=== PATIENT | male | born 1965 | race Caucasian/White ===

== ENCOUNTER 2016-07-10 11:13 | Emergency (ER) | payer MEDICAID ==
[2016-07-10 12:17] LABS: BASOPHILS 0.8 % (0.0-2.0); HEMATOCRIT 42.9 % (42.0-54.0); HEMOGLOBIN 14.9 g/dL (13.5-17.5); IMMATURE GRANULOCYTES 0.3 % (0-5); LYMPHOCYTES 41.1 % (15-50); MCH 31.5 pg (26.0-34.0); MCHC 34.7 g/dL (31.0-37.0); MCV 90.7 fL (80.0-100.0); MEAN PLATELET VOLUME 10.4 fL (7.4-10.4); MONOCYTES 10.2 % (2-11); NEUTROPHILS 40.6 % (40-80); PLATELET COUNT 290 10x3/uL (130-400); RBC 4.73 10x6/uL (4.20-6.10); RDW 12.7 % (11.5-14.5); WBC 7.6 10x3/uL (4.8-10.8)
[2016-07-10 12:27] LABS: ALKALINE PHOSPHATASE 63 U/L (46-116); ALT (SGPT) 23 U/L (10-68); BILIRUBIN - TOTAL 0.29 mg/dL (0.2-1.3); CALC OSMOLALITY 277 mosm/kg (275-300); CALCIUM 9.2 mg/dL (8.5-10.1); CARBON DIOXIDE 28.6 mmol/L (21.0-32.0); CHLORIDE - SERUM 104 mmol/L (98-107); CREATININE - SERUM 0.8 mg/dL (0.6-1.3); GLUCOSE 91 mg/dL (74-106); POTASSIUM - SERUM 3.9 mmol/L (3.5-5.1); PROTEIN - SERUM 7.2 g/dL (6.4-8.2); SODIUM 140 mmol/L (136-145); UREA NITROGEN 9 mg/dL (7-18); eGFR NON AFRICAN AMERICAN > 90 mL/min (90-120)
[2016-07-10 12:39] LABS: CKMB 2.5 U/L (0.0-3.6); CREATINE KINASE 112 UL (21-232)
[2016-07-10 12:42] LABS: TROPONIN-I < 0.017 ng/mL (0.000-0.060)
== END 2016-07-10 17:42 | disposition home or self-care (01) ==
LOC: D.ER 11:13
PROVIDERS: Emergency Medicine
DX: R07.9 Chest pain, unspecified (principal); J44.9 Chronic obstructive pulmonary disease, unspecified; C44.90 Unspecified malignant neoplasm of skin, unspecified; I49.3 Ventricular premature depolarization

== ENCOUNTER 2016-09-01 10:48 | Outpatient (CLI) | payer MEDICAID ==
[~2016-09-01] VITALS: Ht 185.4 cm; Wt 80.9 kg
--- NOTE | ~2016-09-01 | OP ---
PATIENT NAME: GREGORY HERBERT MEDICAL RECORD: [id number] :69 LOCATION:D.CAT ADMISSION DATE: SURGEON: CALEB SANTILLAN M.D. DATE OF OPERATION: 09/01/2016 PROCEDURES PERFORMED: 1. Selective coronary angiography. 2. Left heart catheterization with ventriculogram. 3. Aortofemoral runoff. INDICATION: A 51-year-old gentleman who presents with symptoms of accelerating angina. He has been having symptoms of lifestyle-limiting claudication as well. EQUIPMENT USED: A 5-Gabonese JL4, Michael right, pigtail catheter. TECHNIQUE: A 5-Gabonese sheath was inserted in retrograde fashion in the right common femoral artery. Next, selective coronary angiography was performed in standard views using 5-Gabonese JL4 and Michael right. Left heart catheterization was performed using pigtail catheter. Pigtail catheter was then pulled down to the level of T12. Power injection was performed to visualize the distal aorta. Next, the catheter was pulled down to the level of the aortic bifurcation. At this point, right and left lower extremity angiograms were performed. CORONARY ANATOMY: 1. Left main: Left main trunk is moderate in caliber. It gives rise to the LAD and circumflex. There is no obstruction. 2. LAD: This is a moderate caliber vessel extending to the apex. It has mild irregularities in the proximal segment, but nothing worse than 20%. 3. Circumflex: This vessel is moderate in caliber. The first lateral branch has a smooth 40% stenosis. 4. Right coronary: This vessel is moderate in caliber and dominant. The mid segment has a long 30% stenosis. 5. Left ventricle: Left ventricle is normal in size. There is mild LV dysfunction noted. Estimated ejection fraction is in the order of 45%. AORTOFEMORAL RUNOFF: The distal aorta is of good caliber. There is no evidence of any atheroma or aneurysm. Each kidney received a single arterial supply. There is no evidence of renal artery stenosis. Right common iliac artery is large in caliber and widely patent. Right common femoral artery is large in caliber and widely patent. Right superficial artery is moderate in caliber. There are mild irregularities throughout its course, but no significant obstruction seen. Right popliteal artery is moderate in caliber and widely patent. Below the knee, there appears to be at least 2-vessel runoff. Left common iliac artery is large in caliber and widely patent. Left common femoral artery is large in caliber and widely patent. Left superficial artery demonstrates mild irregularities, but nothing worse than 20%. Left popliteal artery is moderate in caliber and widely patent. Below the knee, again there appears to be at least 2-vessel runoff. IMPRESSION: 1. Mild coronary artery disease. OPERATIVE REPORT [id number] GREGORY HERBERT 2. Mild left ventricular dysfunction. 3. Mild peripheral vascular disease. PLAN: At this point, we will continue with medical management. TRANSINT:[id number] Voice Confirmation ID: [id number] DOCUMENT ID: [id number] CALEB SANTILLAN M.D. CC: [id number] DICTATION DATE: 09/01/16 1412 CRITICAL CARE PHYSICIAN ASSISTANT: 09/01/16 2016 [facility] CLI 09/01/16 [id number] [place] [address]
--- NOTE | ~2016-09-01 | HEMODYNAMI ---
PATIENT:GREGORY HERBERT MEDICAL RECORD: [id number] : 69 LOCATION:DJUDD ADMISSION DATE: 09/01/16 Generatedon:09/01/201614:10 Patient name: GREGORY HERBERT Patient #: [id number] SSN: : 1965 Date of study: 09/01/2016 Page: Of Hemodynamic Procedure Report Patient Data Patient Demographics Procedure consent was obtained First Name: GREGORY Gender: Male Last Name: PIEDAD : 1965 Patient #: [id number] Age: 51 year(s) Race: Unknown Additional ID: [id number] Contact details [address]: [address] [place] [address] DRIVE State: [place] City: [place] Zip code: [address] Past Medical History Allergies Allergen Reaction Date Comments Reported Shellfish 09/01/2016 Admission Admission Data Admission Date: 09/01/2016 Admission Time: 10:48 Admit Source: Other Procedure Procedure Types Cath Procedure Diagnostic Procedure LHC LHC w/Coronaries Miscellaneous Procedures Moderate Sedation up to 30 minutes Peripheral Cath Diagnostic Procedure Cath Peripheral Uvhvj-Dgvbgfc-Rey-Off Procedure Description Procedure Date Procedure Date: 09/01/2016 Procedure Start Time: 13:52 Procedure End Time: 14:09 Procedure Staff Name Function Bakari Carrillo MD Performing Physician Willy Byrd RT Scrub Reynaldo Parra RN Nurse Holly North RT Monitor Procedure Data Cath Procedure Fluoroscopy Diagnostic fluoroscopy Total fluoroscopy Time: 2.2 time: 2.2 min min Diagnostic fluoroscopy Total fluoroscopy dose: 391 dose: 391 mGy mGy Contrast Material Contrast Material Type Amount (ml) Isovue 300 126 Entry Location Entry Primary Successful Side Size Upsize Upsize Entry Closure Succes sful Closure Location (Fr) 1 (Fr) 2 (Fr) Remarks Device Remarks Femoral Right 5 Fr Exoseal artery Estimated blood loss: 10 ml Diagnostic catheters Device Type Used For End Catheter Placement Cordis 5Fr JL 4.0 Left Coronary Catheter (MP) Angiography Cordis 5Fr 3DRC Catheter Right Coronary (MP) Angiography Cordis 5Fr Pigtail LV Angiography Catheter (MP) Cordis 5Fr Pigtail Abdominal Catheter (MP) aortogram with runoff Procedure Complications No complications Procedure Medications Medication Administration Route Dosage Oxygen NC 2 l/min Heparin Flush Bag added to field 2 bags (1000units/500ml NS) 0.9% NaCl I.V. 100 ml/hr Fentanyl I.V. 50 mcg Versed I.V. 1 mg Fentanyl I.V. 50 mcg Versed I.V. 1 mg Fentanyl I.V. 50 mcg Hemodynamics Rest Heart Rate: 62 (bpm) Pressure Samples Time Site Value (mmHg) Purpose Heart Use Rate(bpm) 14:01 LV 136/-1,21 EDP 77 14:01 LV 139/-4,21 Snapshot 78 14:01 AO 113/61(88) Pullback 65 14:01 LV 125/-1,17 Pullback 65 Gradients Valve Time Site 1 Site 2 Mean SEP/DFP Peak To Heart Use (mmHg) (sec/min) Peak Rate (mmHg) (bpm) Aortic 14:01 LV AO 14 18 12 65 125/-1,17 113/61(88) Calculations Valve P-P Mean Valve Index Valve Source Name Gradient Area Flow (cm2) Aortic 12 14 12 14 Snapshots Pre Cath Intra NCS Post Cath Vital Signs Time Heart Resp SPO2 etCO2 CP6strh NIBP (mmHg) Rhythm Pain Sedation Rate (ipm) (%) (mmHg) (mmHg) Status Level (bpm) 13:40:42 58 17 98 0 0 133/82(103) NSR 0 (11) 10(A) , No pain 13:44:52 63 17 96 0 0 129/83(100) NSR 0 (11) 10(A) , No pain 13:49:42 64 16 96 0 0 135/73(104) NSR 0 (11) 10(A) , No pain 13:53:54 58 19 96 0 0 125/80(94) NSR 0 (11) 9(A) , No pain 13:58:02 68 18 94 0 0 130/78(93) NSR 0 (11) 9(A) , No pain 14:02:14 62 17 95 0 0 122/73(95) NSR 0 (11) 9(A) , No pain 14:06:24 67 18 95 0 0 113/69(88) NSR 0 (11) 9(A) , No pain 14:08:29 64 18 95 0 0 118/73(92) NSR 0 (11) 9(A) , No pain Medications Time Medication Route Dose Verified Delivered Reason Notes Effec tiveness by by 13:43:18 Oxygen NC 2 Reynaldo Reynaldo Per l/min Fidel Parra RN physician RN 13:43:27 Heparin Flush added 2 Reynaldo Reynaldo used for Bag to bags Fidel Parra RN procedure (1000units/500ml field RN NS) 13:43:38 0.9% NaCl I.V. 100 Reynaldo Reynaldo Per ml/hr Fidel Parra RN physician RN 13:48:28 Fentanyl I.V. 50 [place] [facility] [place] sedation RN 13:48:36 Versed I.V. 1 mg Reynaldo Reynaldo for Fidel Parra RN sedation RN 13:50:07 Fentanyl I.V. 50 [place] [facility] [place]ra RN sedation RN 13:50:11 Versed I.V. 1 mg Reynaldo Reynaldo for Fidel Parra RN sedation RN 13:54:16 Fentanyl I.V. 50 [place] [facility] [place] Parra RN sedation costing analyst Log Time Note 13:13:57 Reynaldo Parra RN sent for patient. Start room use. 13:23:58 Time tracking: Regular hours 13:24:03 Plan of Care:Hemodynamics will remain stable., Cardiac rhythm will remain stable., Comfort level will be maintained., Respiratory function will remain adequate., Patient/ family verbilizes understanding of procedure., Procedure tolerated without complication., Recovers from procedure without complications.. 13:24:07 Admit Source: Other 13:31:15 Patient received from Pre/Post Procedure Room to CCL 1 Alert and oriented. Tansferred to table in Supine position. 13:31:16 Warm blankets applied, and kamron hugger turned on for patient comfort. 13:31:17 Correct patient and procedure confirmed by team. 13:31:18 Signed procedure consent form obtained from patient. 13:31:19 ECG and BP/O2 sat monitors applied to patient. 13:31:20 Full Disclosure recording started 13:39:33 Vital chart was started 13:40:26 Baseline sample Acquired. 13:40:30 Rhythm: sinus rhythm 13:41:42 H&P Date Dictated: 08/25/2016 Within 30 days and on chart., H&P Addendum completed by physician on day of procedure. (MUST COMPLETE FOR ALL OUTPATIENTS). 13:41:44 Pre-procedure instructions explained to patient. 13:41:44 Pre-op teaching completed and patient verbalized understanding. 13:41:45 Family in waiting room. 13:41:47 Patient NPO since Midnight. 13:42:17 Patient allergic to Shellfish 13:42:22 Is patient on blood thinner?No 13:42:25 Patient diabetic? No. 13:42:29 Previous problem with sedation/anesthesia? No ? 13:42:29 Snore? Yes 13:42:30 Sleep apnea? No 13:42:31 Deviated septum? No 13:42:32 Opens mouth fully? Yes 13:42:32 Sticks out tongue? Yes 13:42:34 Airway obstruction? No ? 13:42:37 Dentures? Yes OUT 13:42:43 Pre procedure: right dorsailis pedis pulse 1+ Palpable, but thready & weak; easily obliterated 13:42:46 Pre procedure: left dorsailis pedis pulse 1+ Palpable, but thready & weak; easily obliterated 13:42:49 Patient pain scale 0/10 ?. 13:42:57 IV patent on arrival in left hand with 0.9% NaCl at [facility]. 13:43:05 Lab results completed and on chart. 13:43:10 Bilateral groins area was prepped with chlora-prep and draped in sterile fashion 13:43:10 Alarms reviewed by R. N. 13:43:11 Sharps counted by scrub and verified by R.N. 13:43:14 Acist Syringe opened to sterile field. 13:43:15 Bag Decanter opened to sterile field. 13:43:15 Medline Cath Pack opened to sterile field. 13:43:16 Terumo 5Fr [place] Sheath opened to sterile field. 13:43:16 St Greg 260cm J .035 wire opened to sterile field. 13:43:17 Acist Hand Control opened to sterile field. 13:43:17 Acist Manifold opened to sterile field. 13:43:18 Oxygen 2 l/min NC was administered by Reynaldo Parra RN; Per physician; 13:43:19 Tegaderm 4 x 4 opened to sterile field. 13:43:27 Heparin Flush Bag (1000units/500ml NS) 2 bags added to field was administered by Reynaldo Parra RN; used for procedure; 13:43:38 0.9% NaCl 100 ml/hr I.V. was administered by Reynaldo Parra RN; Per physician; 13:47:10 Final Timeout: patient, procedure, and site verified with staff and physician. All members of the team are in agreement. 13:47:13 Right groin site verified by team. 13:47:16 Physical assessment completed. ASA score P 2 - A patient with mild systemic disease as per Bakari Carrillo MD. 13:47:19 Sedation plan: IV Moderate Sedation Versed, Fentanyl 13:48:28 Fentanyl 50 mcg I.V. was administered by Reynaldo Parra RN; for sedation; 13:48:36 Versed 1 mg I.V. was administered by Reynaldo Parra RN; for sedation; 13:50:07 Fentanyl 50 mcg I.V. was administered by Reynaldo Parra RN; for sedation; 13:50:11 Versed 1 mg I.V. was administered by Reynaldo Parra RN; for sedation; 13:50:49 Zero performed for pressure channel P1 13:52:34 Procedure started. 13:52:52 Local anesthetic to right femoral artery with Lidocaine 2% by Bakari Carrillo MD.INITIAL ACCESS ONLY 13:54:16 Fentanyl 50 mcg I.V. was administered by Reynaldo Parra RN; for sedation; 13:54:48 A 5 Fr sheath was inserted into the Right Femoral artery 13:55:10 Use device set Multipack Set 13:55:11 Diagnostic Infinity 5Fr Multipack catheter opened to sterile field. 13:56:03 A Cordis 5Fr JL 4.0 Catheter (MP) was advanced over the wire and used for Left Coronary Angiography. 13:57:44 Catheter removed. 13:59:09 A Cordis 5Fr 3DRC Catheter (MP) was advanced over the wire and used for Right Coronary Angiography. 13:59:49 Catheter removed. 14:00:43 A Cordis 5Fr Pigtail Catheter (MP) was advanced over the wire and used for LV Angiography. 14:01:29 LV gram done using COLE 14:01:30 LV hemodynamics recorded. 14:01:33 Injector settings: Ml/sec: 10, Volume: 20, 14:02:06 EF : 45 % 14:02:22 A Cordis 5Fr Pigtail Catheter (MP) was advanced over the wire and used for Abdominal aortogram with runoff. 14:04:50 Catheter removed. 14:05:02 Cordis 5Fr Exoseal opened to sterile field. 14:05:10 Sheath removed intact; hemostasis achieved with Exoseal to the Right Femoral artery. 14:05:12 Procedure ended.(Physican Out) 14:05:21 Fluoroscopy time 02.20 minutes. 14:05:44 Fluoroscopy dose: 391 mGy 14:05:44 Flurop Dose total: 391 14:05:48 Contrast amount:Isovue 300 126ml. 14:05:49 Sharps counted by scrub and verified by R.N. 14:05:51 Insertion/operative site no bleeding no hematoma. 14:05:53 Post-op/insertion site Right Femoral artery dressed using a 4 x 4 and Tegaderm. 14:05:58 Post right femoral artery:stable, clean and dry 14:06:04 Post Procedure Pulses reassessed and unchanged 14:06:06 Post-procedure physical assessment completed. ASA score P 2 - A patient with mild systemic disease as per Bakari Carrillo MD. 14:06:09 Post procedure rhythm: unchanged. 14:06:12 Estimated blood loss: 10 ml 14:06:13 Post procedure instruction explained to patient.Patient verbalizes understanding. 14:06:14 Patient needs reinforcement of post procedure teaching. 14:06:30 Procedure type changed to Cath procedure, Diagnostic procedure, LHC, LHC w/Coronaries, Miscellaneous Procedures, Moderate Sedation up to 30 minutes, Peripheral Cath Diagnostic Procedure, Cath Peripheral, Cddvj-Symamxh-Luu-Off 14:07:05 Procedure Complication : No complications 14:07:06 See physician's report for complete and final results. 14:07:35 Procedure and supply charges have been captured, reviewed, submitted and are correct. 14:09:39 Vital chart was stopped 14:09:42 Report given to Pre/Post Procedure Room. 14:09:45 Patient transfered to Pre/Post Procedure Room with Stretcher. 14:09:54 Procedure ended. 14:09:54 Full Disclosure recording stopped 14::58 End room use (Document Last) Device Usage Item Name Manufacture Quantity Catalog Hospital Part Current Minimal Lo t# / Number Charge Number Stock Stock Serial# Code Acist Acist 1 [id number] 403624 [id number] 485181 20 Syringe [employer] Inc Bag Microtek 1 2002S 025083 52568 375609 5 Decanter [employer] Inc. Medline Cardinal 1 [id number] 041421 65728 289998 5 Cath Pack Health Terumo 5Fr Terumo 1 [id number] 098990 519416 318678 [address] [place] [address] Greg 1 [id number] 215351 839561 813698 30 260cm J .035 wire Acist Hand Acist 1 40751 546761 194473 228792 5 Control Medical [employer] Inc Acist Acist 1 59304 842452 536681 554387 5 Manifold Medical Systems Inc Tegaderm 4 3M 1 1626W 280630 015325 108102 5 x 4 Diagnostic Cardinal 1 [id number] 514514 55158 759579 30 Infinity Health 5Fr Multipack catheter Cordis 5Fr Cardinal 1 138106 5 JL 4.0 Health Catheter (MP) Cordis 5Fr Cardinal 1 065773 5 3DRC Health Catheter (MP) Cordis 5Fr Cardinal 1 339709 5 Pigtail Health Catheter (MP) Cordis 5Fr Cardinal 1 EX500 721881 210964 920970 10 Swyft Signature Audit [place] Stage Time Signature Unsigned Intra-Procedure 09/01/2016 Holly 2:10:38 PM Counts RT(R) Signatures Monitor : Holly Signature : Counts RT Date : Time : [id number] [facility] [place] [address]
[2016-09-01] MEDS ORDERED: MOBIC7.5 MG PO (11:01)
[2016-09-01] MEDS ORDERED: RESTORIL15 MG PO (11:01)
[2016-09-01] MEDS ORDERED: ZANTAC150 MG PO (11:01)
[2016-09-01 11:02] VITALS: BP 134/68; Ht 185.4 cm; Wt 80.9 kg
[2016-09-01 11:21] LABS: BASOPHILS 0.2 % (0-2); HEMATOCRIT 43.8 % (42.0-54.0); HEMOGLOBIN 14.9 g/dL (13.5-17.5); IMMATURE GRANULOCYTES 0.2 % (0-5); LYMPHOCYTES 36.4 % (15-50); MCH 31.5 pg (26.0-34.0); MCV 92.6 fL (80.0-100.0); MEAN PLATELET VOLUME 10.6 fL (7.4-10.4); MONOCYTES 8.5 % (2-11); NEUTROPHILS 53.7 % (40-80); PLATELET COUNT 314 10x3/uL (130-400); RBC 4.73 10x6/uL (4.20-6.10); RDW 13.1 % (11.5-14.5); WBC 11.3 10x3/uL (4.8-10.8)
[2016-09-01 11:41] LABS: CALC OSMOLALITY 284 mosm/kg (275-300); CALCIUM 9.2 mg/dL (8.5-10.1); CARBON DIOXIDE 28.8 mmol/L (21.0-32.0); CHLORIDE - SERUM 106 mmol/L (98-107); CREATININE - SERUM 0.9 mg/dL (0.6-1.3); GLUCOSE 88 mg/dL (74-106); POTASSIUM - SERUM 3.5 mmol/L (3.5-5.1); SODIUM 142 mmol/L (136-145); UREA NITROGEN 22 mg/dL (7-18); eGFR NON AFRICAN AMERICAN > 90 mL/min (90-120)
--- NOTE | 2016-09-01 18:26 | NUR ---
1430-RIGHT GROIN CDI, NO HEMATOMA OR BLEEDING NOTED, SOFT TO TOUCH 1500-RIGHT GROIN CDI, NO HEMATOMA OR BLEEDING, NO CHANGES
--- NOTE | 2016-09-01 18:39 | NUR ---
1645-IV D'C WITH CATH TIP INTACT, WRITTEN AND VERBAL INSTRUCTIONS GIVEN TO PT, VERBAL UNDERSTANDING NOTED, DENIES FURTHUR NEEDS
== END 2016-09-01 17:00 | disposition home or self-care (01) ==
LOC: D.CATH 10:48
PROVIDERS: Internal Medicine Cardiovascular Disease
DX: I25.119 Atherosclerotic heart disease of native coronary artery with unspecified angina pectoris (principal); I70.213 Atherosclerosis of native arteries of extremities with intermittent claudication, bilateral legs; R07.9 Chest pain, unspecified; F17.200 Nicotine dependence, unspecified, uncomplicated; Z01.812 Encounter for preprocedural laboratory examination

== ENCOUNTER → 2016-12-31 15:02 | Outpatient (CLI) | payer MEDICAID ==
[2016-09-01 11:02] VITALS: BMI 23.5
[~2016-12-31 15:02] MED LIST: MOBIC7.5 MG PO; RESTORIL15 MG PO; ZANTAC150 MG PO
== END | disposition home or self-care (01) ==
LOC: D.MRI 12-30 16:00
DX: M25.562 Pain in left knee (principal)

== ENCOUNTER 2017-01-28 06:49 | Day surgery (SDC) | payer MEDICAID ==
[~2017-01-28 06:49] MED LIST changes: +VENTOLIN HFA18 GM INH
[2017-01-28 08:58] VITALS: BP 122/75; BMI 23.8
[2017-01-28] MEDS ORDERED: HYDROCODONE-APA1 TAB PO (12:15)
--- NOTE | 2017-01-28 14:40 | NUR ---
0052 DISCHARGE INSTRUCTIONS COMPLETE. FOLLOW UP APPTMENT GIVEN. PRESCRIPTION FOR NORCO GIVEN. ESCORTED OUT BY VOLUNTEER.
--- NOTE | 2017-01-29 10:15 | OP ---
PATIENT NAME: GREGORY HERBERT MEDICAL RECORD: [id number] :69 LOCATION:D.OPS ADMISSION DATE: SURGEON: TALHA RAND MD DATE OF OPERATION: 01/28/2017 PREOPERATIVE DIAGNOSIS: Medial meniscus tear of the left knee. POSTOPERATIVE DIAGNOSIS: Medial meniscus tear of the left knee. PROCEDURE: Left knee arthroscopy with arthroscopic partial medial meniscectomy. SURGEON: Talha Rand MD ANESTHESIA: General. INTRAOPERATIVE COMPLICATIONS: None. SUMMARY OF PATHOLOGIC FINDINGS: The patient had a cleavage plane type tear of the posterior horn of medial meniscectomy that required substantial resection. OPERATIVE SUMMARY IN DETAIL: After obtaining the appropriate preoperative orthopedic surgery consent as well as anesthetic consultation, evaluation and clearance, the patient was brought to the operating room and placed on the operating table in supine position. After general laryngeal mask was administered, tourniquet was placed about the proximal aspect of the left lower extremity. Left lower extremity was then prepped and draped in routine sterile fashion. Leg was elevated, exsanguinated and tourniquet was inflated to 350 mmHg. Routine inferolateral portal was established followed by superomedial portal and inferomedial portal. Diagnostic arthroscopy revealed the above findings. Combination of meniscotome as well as arthroscopic resector were utilized to debride the meniscus superior and inferior leaflet back to stable meniscal rim. Paucity of chondromalacia was noted near the compartments. Having completed this, the knee was insufflated with 30 cc of 0.25% Marcaine with epinephrine and 80 mg of Depo-Medrol. Arthroscopy portals were closed in routine interrupted fashion using 4-0 Prolene. Sterile dressings were applied. The patient was awakened and taken to recovery room in stable condition. All final needle and sponge counts were correct. TRANSINT:[id number] Voice Confirmation ID: [id number] DOCUMENT ID: [id number] TALHA RAND MD at 1015 CC: [id number] DICTATION DATE: 01/28/17 1213 TWILL CUTTER: 01/28/17 1306 [place] [facility] [place] [id number] [place] [address]
== END 2017-01-28 14:35 | disposition home or self-care (01) ==
LOC: D.OPS 06:49 → D.PAN 11:45 → D.OPS 12:50 → D.PAN 16:00 → D.OPS 16:00
DX: S83.242A Other tear of medial meniscus, current injury, left knee, initial encounter (principal); F17.200 Nicotine dependence, unspecified, uncomplicated; J44.9 Chronic obstructive pulmonary disease, unspecified; K21.9 Gastro-esophageal reflux disease without esophagitis; Z01.812 Encounter for preprocedural laboratory examination

== ENCOUNTER 2017-04-15 08:46 | Day surgery (SDC) | payer MEDICAID ==
[~2017-04-15] VITALS: Ht 185.4 cm; Wt 83.9 kg
--- NOTE | ~2017-04-15 | OP ---
PATIENT NAME: GREGORY HERBERT MEDICAL RECORD: [id number] :69 LOCATION:D.OPS ADMISSION DATE: SURGEON: TALHA RAND MD DATE OF OPERATION: 04/15/2017 DATE OF OPERATION: 04/15/2017 PREOPERATIVE DIAGNOSIS: Medial meniscus tear of the left knee. POSTOPERATIVE DIAGNOSIS: Medial meniscus tear of the left knee. PROCEDURE: Arthroscopic partial medial meniscectomy. SURGEON: Talha Rand MD ANESTHESIA: General. INTRAOPERATIVE COMPLICATIONS: None. SUMMARY OF PATHOLOGIC FINDINGS: Consistent with preoperative radiographs and MRI, the patient had a complex tear of the posterior horn of the medial meniscus. OPERATIVE SUMMARY IN DETAIL: After obtaining the appropriate preoperative orthopedic surgery consent as well as anesthetic consultation, evaluation, and clearance, the patient was brought to the operating room and placed on the operating table in supine position. After adequate general laryngeal mask airway was administered, tourniquet was placed about the proximal aspect of the left lower extremity. The left lower extremity was then prepped and draped in routine sterile fashion. Leg was elevated, exsanguinated and tourniquet was inflated to 350 mmHg. Routine inferolateral portal was established followed by superomedial portal and inferomedial portal. Diagnostic arthroscopy did show the patient to have complex tear of the posterior horn of the medial meniscus. The medial meniscus was taken back to stable meniscal elements using an arthroscopic resector as well as meniscotome. Having completed this, the knee was insufflated with 30 cc of 0.25% Marcaine with epinephrine and 40 mg of Depo-Medrol. Arthroscopy portals were closed in routine interrupted fashion using 4-0 Prolene. Sterile dressings were applied. The patient was taken to recovery room in stable condition. All final needle and sponge counts were correct. TRANSINT:[id number] Voice Confirmation ID: [id number] DOCUMENT ID: [id number] TALHA RAND MD at 1657 CC: [id number] DICTATION DATE: 04/30/17 1507 APPLIQUER ZIGZAG: 04/30/17 1555 [facility] 04/15/17 [place] [address]
[~2017-04-15 08:46] MED LIST changes: +HYDROCODONE-APA1 TAB PO
[2017-04-15 09:19] VITALS: BP 126/64; Ht 185.4 cm; Wt 83.9 kg
[2017-04-15 09:49] LABS: HEMATOCRIT 44.9 % (42.0-54.0); HEMOGLOBIN 15.4 g/dL (13.5-17.5); MCH 31.2 pg (26.0-34.0); MCHC 34.3 g/dL (31.0-37.0); MCV 90.9 fL (80.0-100.0); MEAN PLATELET VOLUME 10.6 fL (7.4-10.4); RBC 4.94 10x6/uL (4.20-6.10); RDW 13.5 % (11.5-14.5); WBC 7.9 10x3/uL (4.8-10.8)
[2017-04-15] MEDS ORDERED: HYDROCODONE-APA1 TAB PO (14:03)
== END 2017-04-15 15:45 | disposition home or self-care (01) ==
LOC: D.OPS 08:46 → D.PAN 12:00 → D.OPS 12:00 → D.PAN 14:25 → D.OPS 14:45 → D.PAN 14:45 → D.OPS 15:45
PROVIDERS: Anesthesiology
DX: S83.242A Other tear of medial meniscus, current injury, left knee, initial encounter (principal); F17.200 Nicotine dependence, unspecified, uncomplicated; J44.9 Chronic obstructive pulmonary disease, unspecified; K21.9 Gastro-esophageal reflux disease without esophagitis; Z01.812 Encounter for preprocedural laboratory examination

== ENCOUNTER → 2020-07-17 10:07 | Outpatient (CLI) | payer OTHER ==
[~2020-07-17 10:07] MED LIST changes: +CYCLOBENZAPRINE10 MG PO; +EC-NAPROSYN500 MG PO
== END | disposition home or self-care (01) ==
LOC: D.MRI 10:00
PROVIDERS: ATTEND Nurse Practitioner
DX: N28.89 Other specified disorders of kidney and ureter (principal)